=== PATIENT | male | born 1980 | race Two or more races ===

== ENCOUNTER 2021-05-02 20:06 | Emergency (ER) | payer SELFPAY ==
[~2021-05-02] VITALS: Ht 188 cm; Wt 99.8 kg
[2021-05-02 20:15] VITALS: BP_SYST 128
[2021-05-02] MEDS ORDERED: KETOROLAC TROMETHAMINE 60 MG/2 ML VIAL IM ONE (20:30)
[2021-05-02] MEDS ORDERED: MORPHINE 2 MG/ML INJ. SYRINGE IM ONE (20:30)
[2021-05-02] MEDS ORDERED: IBUP-1969 PO (21:05)
[2021-05-02] MEDS ORDERED: CYCL10TA24 PO (21:05)
== END 2021-05-02 21:15 | disposition home or self-care (01) ==
LOC: SED 20:06
DX: M79.651 Pain in right thigh (principal); Z79.899 Other long term (current) drug therapy
CPT/HCPCS: 93971; 96372; 99284; J1885; J2270

== ENCOUNTER 2021-05-08 09:15 | Emergency (ER) | payer MEDICAID ==
[~2021-05-08] VITALS: Ht 188 cm; Wt 99.8 kg
[2021-05-08 09:15] VITALS: BP_SYST 122
[~2021-05-08 09:15] MED LIST: CYCL10TA24 PO; IBUP-1969 PO
--- NOTE | 2021-05-08 09:15 | NUR ---
BROUGHT BACK TO BED #5 AND TRIAGED. REPORT GIVEN TO AMY
--- NOTE | 2021-05-08 09:23 | NUR ---
PT COMES TO ER WITH C/O RT SIDED LOWER BACK PAIN THAT RADIATES TO RT LOWER LEG. BEEN ONGOING FOR 7 WEEKS, GRADUALLY GETTING WORSE AND NOT REPSONSIVE TO TRAMADOL AND OTC MEDS. PT WITH SEVERE PAIN 10/10 AT THIS TIME. DENIES ANY INCONTINENCE, NUMBNESS/TINGLING. DENIES ANY NEW TRAUMA/FALL. STATES HE WAS WORKING ON [employer] WHEN HE FELT SUDDEN PAIN.
--- NOTE | 2021-05-08 09:36 | NUR ---
DR. NUNN IN ROOM FOR EXAM.
[2021-05-08] MEDS ORDERED: ONDANSETRON 4 MG ODT TAB PO ONE (09:45)
[2021-05-08] MEDS ORDERED: KETOROLAC TROMETHAMINE 60 MG/2 ML VIAL IM ONE (09:45)
[2021-05-08] MEDS ORDERED: MORPHINE SULFATE 10 MG/ML VIAL IM ONE (09:45)
--- NOTE | 2021-05-08 09:56 | NUR ---
Patient transported to radiology via WHEELCHAIR, accompanied by STAFF].
--- NOTE | 2021-05-08 11:25 | NUR ---
# 20 gauge angiocath placed to RIGHT AC. Use of asceptic technique. Opsite placed over site. Blood return noted. Blood for lab drawn from site. Flushed with 10 cc of normal saline. No evidence of infiltration noted. Patient tolerated well.
[2021-05-08] MEDS ORDERED: NACL 0.9% 1,000 ML IV ONE (11:30)
--- NOTE | 2021-05-08 11:42 | NUR ---
MRI CHECKLIST DONE.
[2021-05-08 11:50] LABS: ANION GAP 4 (5-15); CHLORIDE 102 mmol/L (98-107); CREATININE 1.15 mg/dL (0.55-1.30); GLUCOSE 95 mg/dL (70-99); POTASSIUM 4.9 mmol/L (3.5-5.1); SODIUM SERUM 138 mmol/L (136-145); UREA NITROGEN, BLOOD 24 mg/dL (8-21)
[2021-05-08 11:55] LABS: ALANINE AMINOTRANSFERASE 47 U/L (12-78); ALBUMIN 4.2 g/dL (3.4-4.8); ASPARTATE AMINOTRANSFERASE 30 U/L (10-37); TOTAL BILIRUBIN 0.4 mg/dL (0.0-1.0)
[2021-05-08 12:10] LABS: BASOPHILS # (AUTO) 0.1 K/uL (0.0-0.2); BASOPHILS % (AUTO) 0.7 % (0.0-2.0); EOSINOPHILS # (AUTO) 0.3 K/uL (0.0-0.4); EOSINOPHILS % (AUTO) 3.1 % (0.0-4.0); HEMATOCRIT 47.8 % (36-54); HEMOGLOBIN 16.1 g/dL (14.0-18.0); LYMPHOCYTES # (AUTO) 1.8 K/uL (1.0-5.5); MEAN CORPUSCULAR HEMOGLOBIN 30 pg (27-31); MEAN CORPUSCULAR HGB CONC 34 % (32-36); MEAN CORPUSCULAR VOLUME 88 fL (79.0-98.0); MONOCYTES # (AUTO) 0.9 K/uL (0.0-1.0); MONOCYTES % (AUTO) 9.3 % (1.7-9.3); NEUTROPHILS # (AUTO) 6.6 K/uL (1.8-7.7); NEUTROPHILS % (AUTO) 67.9 % (40.0-70.0); PLATELET COUNT (AUTO) 180 K/uL (130-430); RED BLOOD CELL COUNT(AUTO) 5.42 MIL/uL (4.2-6.2); RED CELL DISTRIBUTION WIDTH 13.6 % (9.0-15.0); WHITE BLOOD COUNT (AUTO) 9.7 K/uL (4.8-10.8)
[2021-05-08 12:17] LABS: GFR AFRICAN AMERICAN 91 mL/min (>90)
[2021-05-08 12:31] LABS: C-REACTIVE PROTEIN QUANT < 0.2 mg/dL (0-0.5)
[2021-05-08 13:07] LABS: BILIRUBIN,URINE NEGATIVE (NEGATIVE); BLOOD, URINE NEGATIVE (NEGATIVE); COLOR,URINE YELLOW (YELLOW); GLUCOSE,URINE NEGATIVE (NEGATIVE); KETONES,URINE NEGATIVE (NEGATIVE); LEUKOCYTE ESTERASE ,URINE NEGATIVE (NEGATIVE); NITRITE, URINE NEGATIVE (NEGATIVE); PH,URINE 6.5 (5.0-8.0); PROTEIN URINE NEGATIVE (NEGATIVE); UROBILINOGEN,URINE 0.2 (0.2-1.0)
[2021-05-08 13:09] LABS: CLARITY/URINE CLEAR (CLEAR)
[2021-05-08 13:13] LABS: ERYTHROCYTE SEDIMENTATION RATE 5 MM/HR (0-15)
--- NOTE | 2021-05-08 13:25 | NUR ---
PT TO MRI VIA W/C AT THIS TIME.
[2021-05-08 13:36] LABS: BARBITURATE, URINE NEGATIVE (NEG <=200); BENZODIAZEPINE, URINE NEGATIVE (NEG <=150); CANNABINOID, URINE NEGATIVE (NEG <=50); COCAINE, URINE NEGATIVE (NEG <=150); METHAMPHETAMINES SCREEN,URINE NEGATIVE (NEG <=500); OPIATE, URINE POSITIVE (NEG <=100); PHENCYCLIDINE SCREEN,URINE NEGATIVE (NEG <=25); UR TRICYCLIC ANTIDEPRESSANTS POSITIVE (NEG <=300); URINE AMPHETAMINE NEGATIVE (NEG <=500); URINE METHADONE NEGATIVE (NEG <=200); URINE OXYCODONE SCREEN NEGATIVE (NEG <=100); URINE PROPOXYPHENE SCREEN NEGATIVE (NEG <=300)
--- NOTE | 2021-05-08 14:20 | NUR ---
PT BACK FROM MRI.
[2021-05-08] MEDS ORDERED: fentaNYL CITRATE/PF 100 MCG/2 ML AMP IVP ONE (14:30)
--- NOTE | 2021-05-08 15:35 | NUR ---
PT REPORTS FEELING BETTER, IN NAD, ON RA @97%. WAITING FOR ER DISPOSITION.
[2021-05-08] MEDS ORDERED: GADOTERATE MEGLUMINE 7.5 MMOL/15 ML VIAL IV ONE (16:06)
--- NOTE | 2021-05-08 17:49 | NUR ---
PT REQUESTS TO GET SOME FRESH AIR, OK PER ER . DINNER TRAY ORDERED.
[2021-05-08] MEDS ORDERED: HYDR-3917 PO (18:12)
[2021-05-08] MEDS ORDERED: IBUP-1971 PO (18:12)
[2021-05-08] MEDS ORDERED: CYCL10TA24 PO (18:12)
--- NOTE | 2021-05-08 18:42 | NUR ---
Patient given written and verbal discharge instructions and verbalizes understanding. ER MD discussed with patient the results and treatment provided. Patient in stable condition. ID arm band removed. IV catheter removed intact and dressing applied, no active bleeding. Rx of NORCO, FLEXERIL, MOTRIN given. Patient educated on pain management and to follow up with PMD. Pain Scale . Opportunity for questions provided and answered. Medication side effect fact sheet provided.
[2021-05-08 18:43] VITALS: BP_SYST 135
== END 2021-05-08 18:42 | disposition home or self-care (01) ==
LOC: SED 09:15
DX: M54.41 Lumbago with sciatica, right side (principal); Z79.899 Other long term (current) drug therapy
CPT/HCPCS: 36415; 72131; 72148; 72158; 76376; 80053; 80307; 81003; 83605; 85025; 85651; 86140; 87040; 96361; 96372; 96374; 99285; A9575; J1885; J2270; J3010; J7030; Q0162

== ENCOUNTER 2021-07-29 17:24 | Emergency (ER) | payer MEDICAID, SELFPAY ==
[~2021-07-29] VITALS: Ht 188 cm; Wt 99.8 kg
[~2021-07-29 17:24] MED LIST changes: +HYDR-3917 PO; +IBUP-1971 PO
[2021-07-29 17:28] VITALS: BP_SYST 132
--- NOTE | 2021-07-29 17:28 | NUR ---
Patient to ER bed 7 to gown for evaluation. Side rails up. Report given to LEN ALBARADO AND LIV KEMP.
--- NOTE | 2021-07-29 17:30 | NUR ---
Pt brought by self , A&Ox4, pt presents to ER with R lower back pain/ R leg pain, pt states he has Hx of sciatica, skin pink and warm, cap refill <3, VSS, respirations even and unlabored, cap refill <3.
--- NOTE | 2021-07-29 17:42 | NUR ---
Dr Jones evaluating patient at bedside
[2021-07-29] MEDS ORDERED: IBUP-1969 PO (17:45)
[2021-07-29] MEDS ORDERED: LIDO1ADH77 TD (17:45)
[2021-07-29] MEDS ORDERED: CYCL10TA24 PO (17:45)
[2021-07-29] MEDS ORDERED: KETOROLAC TROMETHAMINE 60 MG/2 ML VIAL IM ONE (18:00)
[2021-07-29 18:03] VITALS: BP_SYST 132
--- NOTE | 2021-07-29 18:06 | NUR ---
Patient given written and verbal discharge instructions and verbalizes understanding. ER MD discussed with patient the results and treatment provided. Patient in stable condition. ID arm band removed. Rx of Cyclobenzaphrine and Ibuprofen given. Patient educated on pain management and to follow up with PMD. Pain Scale 2/10. Opportunity for questions provided and answered. Medication side effect fact sheet provided.
== END 2021-07-29 18:03 | disposition home or self-care (01) ==
LOC: SED 17:24
DX: M54.30 Sciatica, unspecified side (principal); M54.31 Sciatica, right side; Z88.1 Allergy status to other antibiotic agents; Z88.6 Allergy status to analgesic agent; Z88.8 Allergy status to other drugs, medicaments and biological substances
CPT/HCPCS: 96372; 99283; J1885